=== PATIENT | female | born 1960 | race Caucasian/White ===

== ENCOUNTER 2017-06-08 10:33 | Emergency (ER) | payer MEDICAID ==
[~2017-06-08] VITALS: Ht 144.8 cm; Wt 84.8 kg
[2017-06-08 11:31] LABS: CALCIUM 8.7 mg/dL (8.5-10.1); CARBON DIOXIDE 25.8 mmol/L (21-32); CHLORIDE SERUM 104 mmol/L (98-107); CREATININE SERUM 0.7 mg/dL (0.6-1.0); GFR1 > 60 mL/min; GLUCOSE SERUM 101 mg/dL (74-106); POTASSIUM SERUM 3.5 mmol/L (3.5-5.1); SODIUM SERUM 141 mmol/L (136-145)
[2017-06-08 11:36] LABS: ALBUMIN 3.7 g/dL (3.4-5.0); ALKALINE PHOSPHATASE 100 U/L (46-116); ALT/SGPT 23 U/L (14-59); AST/SGOT 22 U/L (15-37); BASOPHIL % 0.4 % (0-2); BILIRUBIN TOTAL 1.2 mg/dL (0.20-1.00); PLATELET COUNT 312 x10^3mcL (130-400); RED CELL DISTRIBUTION WIDTH 14.5 % (11.5-14.5); TOTAL PROTEIN, SERUM 7.9 g/dL (6.4-8.2)
[2017-06-08 11:39] LABS: microscopic required? YES; urine erythrocyte TRACE (NEGATIVE)
[2017-06-08 13:58] VITALS: BP 103/63
== END 2017-06-08 13:58 | disposition home or self-care (01) ==
LOC: ED 10:33
PROVIDERS: Emergency Medicine
DX: N10 Acute pyelonephritis (principal)
CPT/HCPCS: J0696; J7030

== ENCOUNTER 2017-06-09 08:02 | Emergency (ER) | payer MEDICAID ==
[~2017-06-09] VITALS: Ht 154.9 cm; Wt 85.7 kg
[2017-06-09 11:27] VITALS: BP 127/66
== END 2017-06-09 11:46 | disposition home or self-care (01) ==
LOC: ED 08:02
DX: G43.909 Migraine, unspecified, not intractable, without status migrainosus (principal)
CPT/HCPCS: J3030; Q0162

== ENCOUNTER 2017-09-13 18:38 | Emergency (ER) | payer SELFPAY ==
[2017-09-13 23:02] VITALS: BP 134/81
== END 2017-09-13 23:02 | disposition home or self-care (01) ==
LOC: ED 18:38
DX: S16.1XXA Strain of muscle, fascia and tendon at neck level, initial encounter (principal); M54.9 Dorsalgia, unspecified; R03.0 Elevated blood-pressure reading, without diagnosis of hypertension; V43.92XA Unspecified car occupant injured in collision with other type car in traffic accident, initial encounter; Y93.89 Activity, other specified; Y92.89 Other specified places as the place of occurrence of the external cause; Y99.8 Other external cause status
CPT/HCPCS: J1885

== ENCOUNTER 2019-06-28 20:01 | Emergency (ER) | payer OTHER ==
[~2019-06-28] VITALS: Ht 154.9 cm; Wt 87.1 kg
[2019-06-28 20:28] LABS: BASOPHIL % 0.8 % (0-2); PLATELET COUNT 364 x10^3mcL (130-400)
[2019-06-28 20:29] LABS: RED CELL DISTRIBUTION WIDTH 15.1 % (11.5-14.5)
[2019-06-28 20:32] VITALS: Ht 154.9 cm; Wt 87.1 kg
[2019-06-28 20:45] LABS: CALCIUM 8.4 mg/dL (8.5-10.1); CARBON DIOXIDE 28.4 mmol/L (21-32); CHLORIDE SERUM 107 mmol/L (98-107); CREATININE SERUM 0.7 mg/dL (0.6-1.0); GFR1 > 60 mL/min; GLUCOSE SERUM 107 mg/dL (74-106); POTASSIUM SERUM 3.9 mmol/L (3.5-5.1); SODIUM SERUM 144 mmol/L (136-145)
[2019-06-28 20:49] LABS: ALBUMIN 3.7 g/dL (3.4-5.0); ALKALINE PHOSPHATASE 75 U/L (46-116); ALT/SGPT 39 U/L (14-59); AST/SGOT 27 U/L (15-37); BILIRUBIN TOTAL 0.92 mg/dL (0.20-1.00); LIPASE 118 IU/L (73-393); TOTAL PROTEIN, SERUM 7.5 g/dL (6.4-8.2)
[2019-06-28 22:00] LABS: microscopic required? YES; urine erythrocyte NEGATIVE (NEGATIVE)
[2019-06-28 23:16] VITALS: BP 132/57
== END 2019-06-28 23:16 | disposition home or self-care (01) ==
LOC: ED 20:01
PROVIDERS: Emergency Medicine
DX: K59.00 Constipation, unspecified (principal); K57.90 Diverticulosis of intestine, part unspecified, without perforation or abscess without bleeding; Z90.710 Acquired absence of both cervix and uterus
CPT/HCPCS: J1885; Q9967